=== PATIENT | female | born 1975 ===

== ENCOUNTER 2018-11-24 17:56 | Emergency (ER) | payer OTHER ==
[~2018-11-24 17:56] MED LIST: DIPH-740 PO; LEV125 PO; LIDO40SO PO; MAG-65 PO; MULT1TAB64 PO; NORE-74 PO
--- NOTE | 2018-11-24 18:06 | ER Report ---
History and Physical Time Seen By MD: 18:06 HPI/ROS CHIEF COMPLAINT: Right flank pain HISTORY OF PRESENT ILLNESS: 43-year-old female patient presents to emergency room with complaint of right flank pain. Patient states this started suddenly at noon today. She states that there is nothing seems to make the pain better or worse. She denies having any fevers or chills. She states she has had some nausea associated with this. Patient states that she has not taken any medication for this. She states she's been able to eat and drink without any difficulties. Patient denies having any other pain similar to this. REVIEW OF SYSTEMS: Respiratory: No cough, no dyspnea. Cardiovascular: No chest pain, no palpitations. Gastrointestinal: As noted above Musculoskeletal: No back pain. Allergies: Coded Allergies: erythromycin base (Unverified Allergy, Severe, 11/24/18) STOMACH CRAMPS Home Meds Active Scripts Tamsulosin Hcl (FLOMAX) 0.4 Mg Cap.er.24h, 0.4 MG PO DAILY, #15 CAP Prov:ELIZA JAUREGUI 11/24/18 Hydrocodone Bit/Acetaminophen (HYDROCODON-ACETAMINOPHEN 5-325) 1 Each Tablet, 1 EACH PO Q4-6H PRN for PAIN, #12 TAB Prov:ELIZA JAUREGUIP 11/24/18 Reported Medications Multivitamin (MULTI VITAMIN DAILY) 1 Each Tablet, 1 EACH PO DAILY 05/19/14 Levothyroxine Sodium (LEVOTHYROXINE SODIUM) 0.125 Mg Tab, 0.125 MG PO QDAY, TAB 05/19/14 Discontinued Reported Medications Lidocaine Hcl (LIDOCAINE HCL) 40 Mg/1 Ml Solution, 60 ML PO Q6H 05/19/14 Mag Hydrox/Al Hydrox/Simeth (MAALOX ADVANCED SUSPENSION) 770 Ml Oral.susp, 60 ML PO Q6H 05/19/14 Diphenhydramine Hcl (BENADRYL) 25 Mg Capsule, 60 ML PO Q6H, CAPSULE TAKE 1 CAPSULE BY MOUTH EVERY 6 TO 8 HOURS 05/19/14 Norethindrone A-E Estradiol (MICROGESTIN) 1 Each Tablet, 1 EACH PO DAILY 05/19/14 Past Medical/Surgical History Patient has a past medical history of hypothyroidism. Patient has a surgical history of wisdom teeth removal. Reviewed Nurses Notes: Yes Hx Smoking: No Smoking Status: Never Smoker Hx Substance Use Disorder: No Hx Alcohol Use: No Constitutional Vital Sign - Last 24 Hours 11/24/18 11/24/18 11/24/18 11/24/18 17:56 18:04 18:05 18:26 Temp 99.1 Pulse 69 73 69 Resp 12 B/P (MAP) 134/85 (101) 134/85 Pulse Ox 96 93 95 O2 Delivery Room Air 11/24/18 11/24/18 11/24/18 11/24/18 18:30 18:56 19:00 19:26 Pulse 71 69 B/P (MAP) 136/90 (105) 131/87 (102) Pulse Ox 95 94 11/24/18 11/24/18 11/24/18 11/24/18 19:30 19:35 20:03 20:05 Pulse 78 69 B/P (MAP) 131/88 (102) 131/81 (98) Pulse Ox 88 90 11/24/18 11/24/18 20:30 20:35 Pulse 78 B/P (MAP) 122/81 (95) Pulse Ox 91 Physical Exam General Appearance: The patient is alert, has no immediate need for airway protection and no current signs of toxicity. Respiratory: Chest is non tender, lungs are clear to auscultation. Cardiac: regular rate and rhythm Gastrointestinal: Abdomen is soft and non tender, no masses, bowel sounds normal. Musculoskeletal: Neck: Neck is supple and non tender. Extremities have full range of motion and are non tender. Skin: No rashes or lesions. DIFFERENTIAL DIAGNOSIS: After history and physical exam differential diagnosis was considered for flank pain including but not limited to musculoskeletal causes, kidney stone, pyelonephritis, shingles, and intra-abdominal causes such as diverticulitis and appendicitis. Medical Decision Making Data Points Result Diagram: 11/24/18 1822 11/24/18 1822 Laboratory Hematology Test 11/24/18 18:22 11/24/18 19:59 Red Blood Count 4.56 M/uL (4.17-5.56) Mean Corpuscular Volume 91.4 fL (80.0-96.0) Mean Corpuscular Hemoglobin 31.6 pg (26.0-33.0) Mean Corpuscular Hemoglobin Concent 34.5 g/dL (32.0-36.0) Red Cell Distribution Width 12.8 % (11.5-14.5) Mean Platelet Volume 8.0 fL (7.2-11.1) Neutrophils (%) (Auto) 70.4 % (39.4-72.5) Lymphocytes (%) (Auto) 16.4 % (17.6-49.6) Monocytes (%) (Auto) 9.4 % (4.1-12.4) Eosinophils (%) (Auto) 2.7 % (0.4-6.7) Basophils (%) (Auto) 1.1 % (0.3-1.4) Nucleated RBC Relative Count (auto) 0.0 /100WBC Neutrophils # (Auto) 5.0 K/uL (2.0-7.4) Lymphocytes # (Auto) 1.2 K/uL (1.3-3.6) Monocytes # (Auto) 0.7 K/uL (0.3-1.0) Eosinophils # (Auto) 0.2 K/uL (0.0-0.5) Basophils # (Auto) 0.1 K/uL (0.0-0.1) Nucleated RBC Absolute Count (auto) 0.00 K/uL Erythrocyte Sedimentation Rate < 1 mm/HOUR (0-20) Sodium Level 136 mmol/L (137-145) Potassium Level 4.0 mmol/L (3.5-5.0) Chloride Level 104 mmol/L (98-107) Carbon Dioxide Level 19 mmol/L (22-31) Blood Urea Nitrogen 14 mg/dl (7-18) Creatinine 1.00 mg/dl (0.52-1.04) Glomerular Filtration Rate Calc > 60.0 Random Glucose 94 mg/dl (75-110) Calcium Level 9.0 mg/dl (8.4-10.2) Total Bilirubin 0.3 mg/dl (0.2-1.3) Aspartate Amino Transf (AST/SGOT) 30 U/L (0-35) Alanine Aminotransferase (ALT/SGPT) 24 U/L (0-56) Alkaline Phosphatase 40 U/L (0-126) C-Reactive Protein < 0.5 mg/dl (<1.0) Total Protein 6.3 g/dl (6.3-8.2) Albumin 4.1 g/dl (3.5-5.0) Human Chorionic Gonadotropin, Qual Negative (NEGATIVE) Urine Color Yellow Urine Clarity Clear Urine pH 5.0 pH (4.8-9.5) Urine Specific [place] 1.015 Urine Protein Negative mg/dL (NEGATIVE) Urine Glucose (UA) Negative mg/dL (NEGATIVE) Urine Ketones Trace mg/dL (NEGATIVE) Urine Blood Moderate (NEGATIVE) Urine Nitrite Negative (NEGATIVE) Urine Bilirubin Negative (NEGATIVE) Urine Urobilinogen Negative mg/dL (0.2-1.9) Urine Leukocyte Esterase Negative (NEGATIVE) Urine RBC 18 /HPF (0-2/HPF) Urine WBC None /HPF (0-5/HPF) Urine Squamous Epithelial Cells Many /LPF (</=FEW) Urine Bacteria Negative /HPF (NONE-FEW) Urine Mucus Few /HPF (NONE-FEW) Chemistry Test 11/24/18 18:22 11/24/18 19:59 White Blood Count 7.1 k/uL (4.5-11.0) Red Blood Count 4.56 M/uL (4.17-5.56) Hemoglobin 14.4 g/dL (12.0-16.0) Hematocrit 41.6 % (34.0-47.0) Mean Corpuscular Volume 91.4 fL (80.0-96.0) Mean Corpuscular Hemoglobin 31.6 pg (26.0-33.0) Mean Corpuscular Hemoglobin Concent 34.5 g/dL (32.0-36.0) Red Cell Distribution Width 12.8 % (11.5-14.5) Platelet Count 234 K/uL (150-450) Mean Platelet Volume 8.0 fL (7.2-11.1) Neutrophils (%) (Auto) 70.4 % (39.4-72.5) Lymphocytes (%) (Auto) 16.4 % (17.6-49.6) Monocytes (%) (Auto) 9.4 % (4.1-12.4) Eosinophils (%) (Auto) 2.7 % (0.4-6.7) Basophils (%) (Auto) 1.1 % (0.3-1.4) Nucleated RBC Relative Count (auto) 0.0 /100WBC Neutrophils # (Auto) 5.0 K/uL (2.0-7.4) Lymphocytes # (Auto) 1.2 K/uL (1.3-3.6) Monocytes # (Auto) 0.7 K/uL (0.3-1.0) Eosinophils # (Auto) 0.2 K/uL (0.0-0.5) Basophils # (Auto) 0.1 K/uL (0.0-0.1) Nucleated RBC Absolute Count (auto) 0.00 K/uL Erythrocyte Sedimentation Rate < 1 mm/HOUR (0-20) Glomerular Filtration Rate Calc > 60.0 Calcium Level 9.0 mg/dl (8.4-10.2) Total Bilirubin 0.3 mg/dl (0.2-1.3) Aspartate Amino Transf (AST/SGOT) 30 U/L (0-35) Alanine Aminotransferase (ALT/SGPT) 24 U/L (0-56) Alkaline Phosphatase 40 U/L (0-126) C-Reactive Protein < 0.5 mg/dl (<1.0) Total Protein 6.3 g/dl (6.3-8.2) Albumin 4.1 g/dl (3.5-5.0) Human Chorionic Gonadotropin, Qual Negative (NEGATIVE) Urine Color Yellow Urine Clarity Clear Urine pH 5.0 pH (4.8-9.5) Urine Specific [place] 1.015 Urine Protein Negative mg/dL (NEGATIVE) Urine Glucose (UA) Negative mg/dL (NEGATIVE) Urine Ketones Trace mg/dL (NEGATIVE) Urine Blood Moderate (NEGATIVE) Urine Nitrite Negative (NEGATIVE) Urine Bilirubin Negative (NEGATIVE) Urine Urobilinogen Negative mg/dL (0.2-1.9) Urine Leukocyte Esterase Negative (NEGATIVE) Urine RBC 18 /HPF (0-2/HPF) Urine WBC None /HPF (0-5/HPF) Urine Squamous Epithelial Cells Many /LPF (</=FEW) Urine Bacteria Negative /HPF (NONE-FEW) Urine Mucus Few /HPF (NONE-FEW) Urinalysis Test 11/24/18 19:59 Urine Color Yellow Urine Clarity Clear Urine pH 5.0 pH (4.8-9.5) Urine Specific [place] 1.015 Urine Protein Negative mg/dL (NEGATIVE) Urine Glucose (UA) Negative mg/dL (NEGATIVE) Urine Ketones Trace mg/dL (NEGATIVE) Urine Blood Moderate (NEGATIVE) Urine Nitrite Negative (NEGATIVE) Urine Bilirubin Negative (NEGATIVE) Urine Urobilinogen Negative mg/dL (0.2-1.9) Urine Leukocyte Esterase Negative (NEGATIVE) Urine RBC 18 /HPF (0-2/HPF) Urine WBC None /HPF (0-5/HPF) Urine Squamous Epithelial Cells Many /LPF (</=FEW) Urine Bacteria Negative /HPF (NONE-FEW) Urine Mucus Few /HPF (NONE-FEW) EKG/Imaging Imaging CT ABDOMEN PELVIS W/ CON HISTORY: Flank pain. TECHNIQUE: CT abdomen and pelvis with intravenous contrast. One of the following dose optimization techniques was utilized in the performance of this exam: Automated exposure control; adjustment of the mA and/or kV according to the patient's size; or use of an iterative reconstruction technique. Specific details can be referenced in the facility's radiology CT exam operational policy. CONTRAST: 75 mL Isovue-370 IV COMPARISON: None. FINDINGS: Visualized lung bases: Minimal atelectasis within lingula. Several noncalcified micronodules within right lung base, the largest 2-3 mm. Calcified micronodule right lung base consistent with benign granuloma. Hepatobiliary: Mild periportal edema. Gallbladder and bile ducts grossly unremarkable. Spleen: Negative. Adrenals: Negative. Pancreas: Negative. Kidneys/: Delayed right renal enhancement and excretion. Simple fluid attenuating 2.1 cm cortical cyst upper pole right kidney. Small to moderate volume right perinephric free fluid. Mild right hydronephrosis. 4 mm stone proximal most right ureter. No other ureteric or urinary bladder stone. GI: No obstruction, wall thickening or surrounding inflammation. Appendix well- visualized and appears normal. Vessels/spaces/nodes: Aside from the aforementioned perinephric free fluid on the right, elsewhere no additional free fluid, no free gas and no adenopathy. Bones/soft tissues: Mild disc degenerative changes lumbosacral junction. Bilateral L5 pars interarticularis defects without listhesis. IMPRESSION: 1. 4 mm stone proximal most right ureter. Although there is only mild hydronephrosis at this time, there is delayed right renal enhancement and a small to moderate volume of perinephric free fluid suggesting recent rupture of a calyceal fornix with subsequent decompression. 2. Small benign-appearing cyst right kidney. 3. Bilateral L5 pars defects. 4. Several basilar pulmonary micronodules. According to Fleischner Society guidelines, no further evaluation is necessary in patient's without immunosuppression or known malignancy. Results were called to FLEET MANAGER ELIZA JAUREGUI at 11/24/2018 7:29 PM. Report Dictated By: Byron Lagos MD at 11/24/2018 7:20 PM Report E-Signed By: Byron Lagos MD at 11/24/2018 7:31 PM ED Course/Re-evaluation ED Course Patient was admitted to exam room, history and physical were obtained. Differential diagnoses were considered. On examination lungs are clear, heart is regular, abdomen is soft and nontender. Patient had no CVA tenderness. A CBC, C MP, hCG, urinalysis were obtained. Labs were unremarkable, urinalysis did show 18 red blood cells per high-power field and moderate blood. A CT scan of the abdomen and pelvis was done which did show a 4 mm stone. It did appear that there was some free fluid. As a result I did discuss the case with Dr. Schmid. He said that there is no change in the treatment at this time. We will still do Flomax and pain medication. I discussed the findings with the patient and her . We will go ahead and discharge him home at this time. Patient was much improved after some pain medication. Prescription was sent into her pharmacy. Due to the time the pharmacy regarding closed and patient was sent home with a to go pack of hydrocodone. Patient is to follow-up Dr. Schmid with any concerns. Patient and her verbalized understanding and agreement with plan. Decision to Disposition Date: Nov 24, 2018 Decision to Disposition Time: 20:25 Depart Departure Latest Vital Signs Vital Signs Date Time Temp Pulse Resp B/P (MAP) Pulse Ox O2 Delivery O2 Flow Rate FiO2 11/24/18 20:35 78 91 11/24/18 20:30 122/81 (95) 11/24/18 18:05 99.1 12 Room Air Impression: Primary Impression: Renal calculus Condition: Improved Disposition: HOME OR SELF-CARE Referrals: NADINE MILLAN (PCP) New Scripts Tamsulosin Hcl (FLOMAX) 0.4 Mg Cap.er.24h 0.4 MG PO DAILY, #15 CAP Prov: ELZIA JAUREGUI 11/24/18 Hydrocodone Bit/Acetaminophen (HYDROCODON-ACETAMINOPHEN 5-325) 1 Each Tablet 1 EACH PO Q4-6H PRN for PAIN, #12 TAB Prov: ELIZA JAUREGUI 11/24/18 Patient Instructions: Kidney Stones (ED) Additional Instructions: Increase fluid intake. Get plenty of rest. Follow up with Dr. Schmid if symptoms persist, call on Tuesday to make an appointment. Return to the ER if condition worsens. Limit activity by pain. ELIZA JAUREGUI Nov 24, 2018 18:06
[2018-11-24] MEDS ORDERED: NS(*) 0.9% 1000 ML BAG 1,000 ML IV ONE (18:12)
[2018-11-24] MEDS ORDERED: KETOROLAC 15 MG/ML VIAL IVP ONE (18:20)
[2018-11-24] MEDS ORDERED: ONDANSETRON 4 MG/2 ML VIAL IVP ONE (18:20)
[2018-11-24 18:33] LABS: PLATELET COUNT, AUTOMATED 234 K/uL (150-450)
[2018-11-24] MEDS ORDERED: IOPAMIDOL 76% 75 ML INFUS BTL 75 ML ONE (18:34)
[2018-11-24] MEDS ORDERED: MORPHINE 4 MG/ML SDV IVP ONE (19:25)
--- NOTE | 2018-11-24 19:34 | RADIOLOGY IMAGING REPORT ---
FACILITY: [facility] - [place] PATIENT NAME: Leeann Millan : 1975 MR: [id number] V: [id number] EXAM DATE: ORDERING PHYSICIAN: ELIZA JAUREGUI TECHNOLOGIST: Location: [facility] - [place] Patient: Leeann Millan : 1975 Visit/Account:[id number] Date of Sevice: 11/24/2018 CT ABDOMEN PELVIS W/ CON HISTORY: Flank pain. TECHNIQUE: CT abdomen and pelvis with intravenous contrast. One of the following dose optimization techniques was utilized in the performance of this exam: Autom ated exposure control; adjustment of the mA and/or kV according to the patient's size; or use of an i terative reconstruction technique. Specific details can be referenced in the facility's radiology C T exam operational policy. CONTRAST: 75 mL Isovue-370 IV COMPARISON: None. FINDINGS: Visualized lung bases: Minimal atelectasis within lingula. Several noncalcified micronodules within right lung base, the largest 2-3 mm. Calcified micronodule right lung base consistent with benign gr anuloma. Hepatobiliary: Mild periportal edema. Gallbladder and bile ducts grossly unremarkable. Spleen: Negative. Adrenals: Negative. Pancreas: Negative. Kidneys/: Delayed right renal enhancement and excretion. Simple fluid attenuating 2.1 cm cortical cyst upper pole right kidney. Small to moderate volume right perinephric free fluid. Mild right hydr onephrosis. 4 mm stone proximal most right ureter. No other ureteric or urinary bladder stone. GI: No obstruction, wall thickening or surrounding inflammation. Appendix well-visualized and appear s normal. Vessels/spaces/nodes: Aside from the aforementioned perinephric free fluid on the right, elsewhere n o additional free fluid, no free gas and no adenopathy. Bones/soft tissues: Mild disc degenerative changes lumbosacral junction. Bilateral L5 pars interarti cularis defects without listhesis. IMPRESSION: 1. 4 mm stone proximal most right ureter. Although there is only mild hydronephrosis at this time, th ere is delayed right renal enhancement and a small to moderate volume of perinephric free fluid sugge sting recent rupture of a calyceal fornix with subsequent decompression. 2. Small benign-appearing cyst right kidney. 3. Bilateral L5 pars defects. 4. Several basilar pulmonary micronodules. According to Fleischner Society guidelines, no further cornelia luation is necessary in patient's without immunosuppression or known malignancy. Results were called to PRICING INTERN ELIZA JAUREGUI at 11/24/2018 7:29 PM. Report Dictated By: Byron Lagos MD at 11/24/2018 7:20 PM Report E-Signed By: Byron Lagos MD at 11/24/2018 7:31 PM WSN:[id number]
[2018-11-24] MEDS ORDERED: TAMSULOSIN HCL 0.4 MG CAP PO ONE (20:20)
[2018-11-24] MEDS ORDERED: ACET/HYDROC 5/325MG TH ER ONLY 2 TAB/BOTTLE PO ONE (20:20)
[2018-11-24] MEDS ORDERED: TAMS0.4C25 PO (20:23)
[2018-11-24] MEDS ORDERED: HYDR-385 PO (20:23)
[2018-11-24 20:30] VITALS: BP 122/81
== END 2018-11-24 20:47 | disposition home or self-care (01) ==
LOC: ER 18:10
DX: N13.2 Hydronephrosis with renal and ureteral calculous obstruction (principal)
CPT/HCPCS: 74177; 81001; 84703; 85025; 85651; 86140; 96361; 96374; 96375; 99284; J1885; J2270; J2405; J7030; Q9967; 82040; 82247; 82310; 82374; 82435; 82565; 82947; 84075; 84132; 84155; 84295; 84450; 84460; 84520

== ENCOUNTER → 2018-11-29 | Outpatient (REF) | payer OTHER ==
[~2018-11-29] MED LIST changes: +HYDR-385 PO; +TAMS0.4C25 PO
== END ==
LOC: ZZSENDIN 15:30
PROVIDERS: ATTEND Urology
DX: N20.0 Calculus of kidney (principal)
CPT/HCPCS: 82365; 88300

== ENCOUNTER → 2018-12-01 | Outpatient (CLI) | payer OTHER ==
--- NOTE | 2018-12-01 15:13 | RADIOLOGY IMAGING REPORT ---
FACILITY: [facility] - [place] PATIENT NAME: Leeann Millan : 1975 MR: [id number] V: [id number] EXAM DATE: ORDERING PHYSICIAN: NADINE MILLAN TECHNOLOGIST: Location: [facility] - [place] Patient: Leeann Millan : 1975 Visit/Account:[id number] Date of Sevice: 12/01/2018 PELVIC HISTORY: History of cysts, of breath control for 2.5 years, on for 22 years TECHNIQUE: Transvaginal and transabdominal ultrasound pelvis. COMPARISON: CT abdomen pelvis November 24, 2018 FINDINGS: Uterus: ; 6.9 cm length x 3.5 cm AP x 4.9 cm transverse. Myometrium: There is a 4 x 8 x 4 mm ovoid mass projecting along the anterior border the endometrium. This appears to represent small fibroid in the adjacent myometrium.. There is an additional 4.8 mm hypoechoic nodule anterior aspect uterine body which may represent an additional small fibroid Endometrium: Unremarkable; double thickness 6.7 mm. Cervix: Nabothian cysts. Ovaries: Right - 3.1 x 1.7 x 1.9 cm Left - 2.6 x 2.1 x 2.6 cm. Is a 1.7 cm simple cyst in the left ovary Blood flow is documented in each ovary by duplex Doppler ultrasound. Adnexa: Grossly unremarkable. Free pelvic fluid: None. IMPRESSION: 1.7 cm simple cyst in the left ovary two small fibroids within the uterus largest measuring 8 mm Report Dictated By: Kateryna Garcia MD at 12/01/2018 3:05 PM Report E-Signed By: Kateryna Garcia MD at 12/01/2018 3:08 PM WSN:[id number]
--- NOTE | 2018-12-05 12:02 | RADIOLOGY IMAGING REPORT ---
FACILITY: [facility] [place] PATIENT NAME: JANETH BRAGA : [id number] MR: [id number] V: [id number] EXAM DATE: [id number] ORDERING PHYSICIAN: NADINE MILLAN TECHNOLOGIST: Ca Diaz PROCEDURE:BILATERAL DIGITAL SCREENING MAMMOGRAM WITH CAD ASSISTED INTERPRETATION & 3D TOMOSYNTHESIS COMPARISON:Prior mammograms 04/06/17. INDICATIONS:screening FINDINGS: The breasts are heterogeneously dense which can obscure small masses. The Right breast is smaller than the Left. There is a rounded area of increased density in the upper portion of the Right breast junction of the middle and posterior 1/3 for which Spot compression view is recommended for further evaluation in addition to a Right XCC view. DIAGNOSTIC CATEGORY 0--INCOMPLETE: NEED ADDITIONAL IMAGING EVALUATION. RECOMMENDATIONS: ADDITIONAL MAMMOGRAPHIC VIEWS REQUIRED: RIGHT BREAST. IMPRESSION: BIRADS 0: Incomplete. Additional views of the Right breast are recommended as described. Dictated by: Kateryna Garcia M.D. on 12/04/2018 at 10:26 Transcribed by: FRANCO on 12/04/2018 at 10:39 Approved by: Kateryna Garcia M.D. on 12/05/2018 at 12:01 [facility]
== END ==
LOC: MAMO 04:37
PROVIDERS: ATTEND Nurse Practitioner Family
DX: Z12.31 Encounter for screening mammogram for malignant neoplasm of breast (principal); R92.8 Other abnormal and inconclusive findings on diagnostic imaging of breast; N88.8 Other specified noninflammatory disorders of cervix uteri; N83.292 Other ovarian cyst, left side
CPT/HCPCS: 76856; 77063; 77067

== ENCOUNTER → 2018-12-28 | Outpatient (CLI) | payer OTHER ==
--- NOTE | 2018-12-28 16:59 | RADIOLOGY IMAGING REPORT ---
FACILITY: [facility] - [place] PATIENT NAME: JANETH BRAGA : [id number] MR: [id number] V: [id number] EXAM DATE: ORDERING PHYSICIAN: NADINE MILLAN TECHNOLOGIST: Ca Diaz PROCEDURE:RIGHT DIGITAL DIAGNOSTIC MAMMOGRAM WITH CAD ASSISTED INTERPRETATION & 3D TOMOSYNTHESIS COMPARISON:Prior mammograms 12/01/18, 04/06/17. INDICATIONS:FURTHER EVAL FINDINGS: The patient returns for mediolateral view of the Right breast, Right XCC view and Spot compression views in the Right CC & MLO projection. There is a vague focal area of increased density reimaged in the upper portion of the Right breast on the Right MLO view at the junctional middle and posterior 1/3's. This was not ideally localized on the CC or MLO views. Today's Right breast Ultrasound revealed no sonographic correlate therefore a 6 month follow-up Right mammogram is recommended unless clinical findings warrant more immediate attention. DIAGNOSTIC CATEGORY 3--PROBABLY BENIGN FINDING. RECOMMENDATIONS: SIX MONTH FOLLOW-UP DIAGNOSTIC MAMMOGRAM: RIGHT BREAST. IMPRESSION: BIRADS 3: Probably benign finding. A 6 month follow-up Right mammogram is recommended as described. Dictated by: Kateryna Garcia M.D. on 12/28/2018 at 14:52 Transcribed by: FRANCO on 12/28/2018 at 15:05 Approved by: Kateryna Garcia M.D. on 12/28/2018 at 16:58 [facility]
--- NOTE | 2018-12-28 16:59 | RADIOLOGY IMAGING REPORT ---
FACILITY: [facility] PATIENT NAME: JANETH BRAGA : [id number] MR: [id number] V: [id number] EXAM DATE: [id number] ORDERING PHYSICIAN: NADINE MILLAN TECHNOLOGIST: Camila Yun RT(R)(CT) PROCEDURE:US RIGHT BREAST COMPARISON:None. INDICATIONS:FURTHER EVAL FINDINGS: The upper portion of the Right breast was imaged sonographically from the 9-3 o'clock position revealing no sonographic abnormalities cystic or solid therefore a 6 month follow-up Right mammogram is recommended unless clinical findings warrant more immediate attention. DIAGNOSTIC CATEGORY 3--PROBABLY BENIGN FINDING. RECOMMENDATIONS: SIX MONTH FOLLOW-UP DIAGNOSTIC MAMMOGRAM: RIGHT BREAST. IMPRESSION: BIRADS 3: Probably benign finding. A 6 month follow-up Diagnostic Right breast mammogram is recommended for further evaluation as described above. Dictated by: Kateryna Garcia M.D. on 12/28/2018 at 14:50 Transcribed by: FRANCO on 12/28/2018 at 15:09 Approved by: Kateryna Garcia M.D. on 12/28/2018 at 16:58 [facility]
== END ==
LOC: MAMO 00:40
PROVIDERS: ATTEND Nurse Practitioner Family
DX: R92.8 Other abnormal and inconclusive findings on diagnostic imaging of breast (principal)
CPT/HCPCS: 77061; 77065